=== PATIENT | male | born 1960 | race Caucasian/White ===

== ENCOUNTER → 2018-10-16 | Outpatient (CLI) | payer OTHER | END | disposition home or self-care (01) | LOC: PETCFH 09:28 | PROVIDERS: ATTEND Student in an Organized Health Care Education/Training Program | DX: C61 Malignant neoplasm of prostate (principal) | CPT/HCPCS: 78306; A9503 ==

== ENCOUNTER → 2018-12-11 | Outpatient (CLI) | payer OTHER ==
[~2018-12-11] MED LIST: BIOTIN PO; CALCIUM PO; LISI-167 PO; PANT40TA5 PO; VITA1TAB19 PO
[2018-12-11 09:08] LABS: BASOPHILS # (AUTO) 0.03 x10^3/uL (0-0.1); BASOPHILS % (AUTO) 0 % (0-1); EOSINOPHILS % (AUTO) 4 % (1-7); LYMPHOCYTES # (AUTO) 1.45 x10^3/uL (1-3.4); LYMPHOCYTES % (AUTO) 18 % (22-44); MD NO; MEAN CORPUSCULAR HEMOGLOBIN 31.1 pg (27.5-34.5); MEAN CORPUSCULAR HGB CONC 34.2 g/dL (33.2-36.2); MEAN CORPUSCULAR VOLUME 91.1 fL (81-97); MEAN PLATELET VOLUME 8.8 fL (7.4-10.4); MONOCYTES # (AUTO) 0.64 x10^3/uL (0.2-0.8); MONOCYTES % (AUTO) 8 % (2-9); NEUTROPHILS # (AUTO) 5.76 x10^3/uL (1.8-6.8); NEUTROPHILS % (AUTO) 70 % (42-75); PLATELET COUNT 302 x10^3/uL (130-400); RED BLOOD COUNT 5.22 x10^6/uL (4.38-5.82)
[2018-12-11 09:09] LABS: MICROSCOPIC NOT IND
[2018-12-11 09:13] LABS: INTERNATIONAL NORMALIZED RATIO 1.02 (0.93-1.1); PROTHROMBIN TIME 10.8 Seconds (9.6-11.5)
[2018-12-11 09:16] LABS: ALANINE AMINOTRANSFERASE 29 U/L (12-78); ALBUMIN 3.9 g/dL (3.4-5.0); ANION GAP 6 mmol/L (5-15); CALCIUM 8.9 mg/dL (8.5-10.1); CHLORIDE 108 mmol/L (98-107); CREATININE 1.02 mg/dL (0.7-1.3)
[2018-12-11 09:18] LABS: ALKALINE PHOSPHATASE 73 U/L (45-117); BILIRUBIN,TOTAL 0.7 mg/dL (0.2-1.0); TOTAL PROTEIN 7.2 g/dL (6.4-8.2)
[2018-12-11 10:08] LABS: HEMOGLOBIN A1C 5.1 % (4.2-6.3)
== END | disposition home or self-care (01) ==
LOC: STAR 08:07
PROVIDERS: ATTEND Student in an Organized Health Care Education/Training Program
DX: Z01.818 Encounter for other preprocedural examination (principal); C61 Malignant neoplasm of prostate
CPT/HCPCS: 36415; 80053; 81003; 83036; 85025; 85610; 85730; 87086; 93005

== ENCOUNTER 2018-12-25 05:48 | Inpatient (IN) | payer OTHER ==
[~2018-12-25] VITALS: Ht 170.2 cm; Wt 73.7 kg
[2018-12-25] MEDS ORDERED: THROMBIN 5,000 UNIT VIAL TP ONE (06:51)
[2018-12-25] MEDS ORDERED: BUPIVACAINE/PF 0.25% ONE (06:51)
[2018-12-25] MEDS ORDERED: LACTATED RINGERS 1,000 ML IV SCH (06:51)
[2018-12-25] MEDS ORDERED: ACETAMINOPHEN 500 MG TABLET PO ONE (07:00)
[2018-12-25] MEDS ORDERED: GABAPENTIN 300 MG CAPSULE PO ONE (07:00)
[2018-12-25] MEDS: SODIUM CHLORIDE 0.9% 1,000 ML IV SCH (07:30)
[2018-12-25] MEDS: HEPARIN 5,000 UNITS/ML, 1ML SQ SCH ×3 (07:30→23:43)
[2018-12-25] MEDS: ACETAMINOPHEN 325 MG TABLET PO SCH ×3 (07:30→19:22)
[2018-12-25] MEDS: CEFAZOLIN PMX 1GM/50ML 50 ML IVPB SCH ×2 (07:30→21:38)
[2018-12-25] MEDS ORDERED: ONDANSETRON 2MG/ML, 2ML IV PRN (07:30)
[2018-12-25] MEDS ORDERED: NEOSTIGMINE 1 MG/ML, 10ML ONE (07:35)
[2018-12-25] MEDS ORDERED: PROPOFOL 10 MG/ML, 20ML ONE (07:35)
[2018-12-25] MEDS ORDERED: ROCURONIUM 10 MG/ML,10ML ONE (07:35)
[2018-12-25] MEDS ORDERED: CEFAZOLIN 1,000 MG ONE (07:35)
[2018-12-25] MEDS ORDERED: LIDOCAINE-MPF 2% ,5ML ONE (07:35)
[2018-12-25] MEDS ORDERED: ONDANSETRON 2MG/ML, 2ML ONE ×2 (07:35→14:18)
[2018-12-25] MEDS ORDERED: DEXAMETHASONE 4 MG/ML, 5ML ONE (07:35)
[2018-12-25] MEDS ORDERED: GLYCOPYRROLATE 0.2MG/1ML, 5ML ONE (07:35)
[2018-12-25] MEDS ORDERED: METOCLOPRAMIDE 5 MG/ML, 2ML ONE (07:35)
[2018-12-25] MEDS ORDERED: MIDAZOLAM 1 MG/ML, 2ML ONE (07:36)
[2018-12-25] MEDS ORDERED: FENTANYL PF 250 MCG/5ML ONE (07:37)
[2018-12-25 07:41] LABS: ALBUMIN 3.8 g/dL (3.4-5.0); ANION GAP 8 mmol/L (5-15); CALCIUM 8.4 mg/dL (8.5-10.1); CHLORIDE 111 mmol/L (98-107); CREATININE 0.88 mg/dL (0.7-1.3)
[2018-12-25] MEDS ORDERED: BUPIVACAINE/PF-EPI 0.25% 1:200K INFIL ONE (08:44)
[2018-12-25] MEDS: POLYETHYLENE GLYCOL 17 GM PACKET PO SCH (09:00)
[2018-12-25] MEDS ORDERED: POLYETHYLENE GLYCOL 17 GM PACKET PO SCH (09:00)
[2018-12-25] MEDS ORDERED: FENTANYL PF 100 MCG/2ML ONE (13:16)
[2018-12-25] MEDS ORDERED: OXYcodone 5 MG/5 ML ORAL.SOL UDC ONE (13:16)
[2018-12-25] MEDS ORDERED: HYDROmorphone 2 MG/ML, 1ML ONE ×3 (13:16→19:18)
[2018-12-25] MEDS ORDERED: MIDAZOLAM 1 MG/ML, 2ML IV PRN (13:30)
[2018-12-25] MEDS ORDERED: LABETALOL 5 MG/ML SYRINGE IV PRN (13:30)
[2018-12-25] MEDS ORDERED: ONDANSETRON 2MG/ML, 2ML IVPush PRN (13:30)
[2018-12-25] MEDS ORDERED: OXYcodone 5 MG/5 ML ORAL.SOL UDC PO PRN (13:30)
[2018-12-25] MEDS ORDERED: HYDROmorphone 1 MG/ML, 1ML IV PRN (13:30)
[2018-12-25] MEDS ORDERED: FENTANYL PF 100 MCG/2ML IV PRN (13:30)
[2018-12-25] MEDS ORDERED: MEPERIDINE/PF 25MG/0.5ML IVPush PRN (13:30)
[2018-12-25 13:37] LABS: ANION GAP 9 mmol/L (5-15); CALCIUM 7.6 mg/dL (8.5-10.1); CHLORIDE 110 mmol/L (98-107); CREATININE 1.36 mg/dL (0.7-1.3)
[2018-12-25] MEDS ORDERED: OPIUM/BELLADONNA SUPP.RECT 16.2-60 MG ONE (13:43)
[2018-12-25] MEDS ORDERED: MEPERIDINE/PF 25MG/ML,1ML ONE (13:59)
[2018-12-25] MEDS: HYDROmorphone 1 MG/ML, 1ML IV PRN ×2 (16:06→19:22)
[2018-12-25 18:50] VITALS: BP 124/75
[2018-12-25] MEDS: OXYcodone 5 MG/5 ML ORAL.SOL UDC PO PRN (21:41)
[2018-12-26 00:11] VITALS: BP 121/77
[2018-12-26] MEDS ORDERED: HYDROmorphone 2 MG/ML, 1ML ONE ×3 (01:37→15:06)
[2018-12-26] MEDS: SODIUM CHLORIDE 0.9% 1,000 ML IV SCH ×3 (01:40→21:00)
[2018-12-26] MEDS: ACETAMINOPHEN 325 MG TABLET PO SCH ×4 (01:40→19:26)
[2018-12-26] MEDS: HYDROmorphone 1 MG/ML, 1ML IV PRN ×3 (01:41→15:12)
[2018-12-26 04:09] VITALS: BP 132/78
[2018-12-26] MEDS: OXYcodone 5 MG/5 ML ORAL.SOL UDC PO PRN ×3 (04:51→19:26)
[2018-12-26] MEDS ORDERED: CEFAZOLIN PMX 1GM/50ML 50 ML IV ONE (05:00)
[2018-12-26 05:16] LABS: CHLORIDE 113 mmol/L (98-107)
[2018-12-26 05:25] LABS: ANION GAP 6 mmol/L (5-15); CALCIUM 6.8 mg/dL (8.5-10.1); CREATININE 0.79 mg/dL (0.7-1.3)
[2018-12-26] MEDS: PANTOPROZOLE 40MG TABLET PO SCH (05:55)
[2018-12-26 07:18] VITALS: BP 138/81
[2018-12-26] MEDS: HEPARIN 5,000 UNITS/ML, 1ML SQ SCH ×3 (08:02→23:43)
[2018-12-26] MEDS: POLYETHYLENE GLYCOL 17 GM PACKET PO SCH (08:02)
[2018-12-26 13:05] VITALS: BP 136/86
[2018-12-26 19:23] VITALS: BP 126/80
[2018-12-27 01:07] VITALS: BP 131/81
[2018-12-27] MEDS: OXYcodone 5 MG/5 ML ORAL.SOL UDC PO PRN ×3 (01:23→13:31)
[2018-12-27] MEDS: ACETAMINOPHEN 325 MG TABLET PO SCH ×3 (01:23→13:32)
[2018-12-27 05:26] LABS: ANION GAP 4 mmol/L (5-15); CALCIUM 7.8 mg/dL (8.5-10.1); CHLORIDE 109 mmol/L (98-107); CREATININE 0.84 mg/dL (0.7-1.3)
[2018-12-27] MEDS: PANTOPROZOLE 40MG TABLET PO SCH (06:08)
[2018-12-27] MEDS: SODIUM CHLORIDE 0.9% 1,000 ML IV SCH (07:00)
[2018-12-27] MEDS: HEPARIN 5,000 UNITS/ML, 1ML SQ SCH (07:32)
[2018-12-27 07:59] VITALS: BP 148/92
[2018-12-27] MEDS: POLYETHYLENE GLYCOL 17 GM PACKET PO SCH (08:54)
[2018-12-27 13:51] VITALS: BP 120/78
[2018-12-27] MEDS ORDERED: OXYC5TAB3 PO (14:37)
[2018-12-27] MEDS ORDERED: DOCU-131 PO (14:37)
== END 2018-12-27 14:51 | disposition home or self-care (01) | DRG 708 ==
LOC: ORIP 05:48 → EDSTATUS 07:30 → 4NOR 14:46 → DCLOUNGE 12-27 14:30
PROVIDERS: ADMIT Student in an Organized Health Care Education/Training Program; ATTEND Student in an Organized Health Care Education/Training Program
PROC: 0VT34ZZ Resection of Bilateral Seminal Vesicles, Percutaneous Endoscopic Approach (ICD-10-PCS; 2018-12-25)
PROC: 07BC4ZZ Excision of Pelvis Lymphatic, Percutaneous Endoscopic Approach (ICD-10-PCS; 2018-12-25)
PROC: 0TQC4ZZ Repair Bladder Neck, Percutaneous Endoscopic Approach (ICD-10-PCS; 2018-12-25)
PROC: 0TQD4ZZ Repair Urethra, Percutaneous Endoscopic Approach (ICD-10-PCS; 2018-12-25)
PROC: 0DN84ZZ Release Small Intestine, Percutaneous Endoscopic Approach (ICD-10-PCS; 2018-12-25)
PROC: 8E0W4CZ Robotic Assisted Procedure of Trunk Region, Percutaneous Endoscopic Approach (ICD-10-PCS; 2018-12-25)
PROC: 0VTQ4ZZ Resection of Bilateral Vas Deferens, Percutaneous Endoscopic Approach (ICD-10-PCS; 2018-12-25)
PROC: 0VT04ZZ Resection of Prostate, Percutaneous Endoscopic Approach (ICD-10-PCS; principal; 2018-12-25 07:30)
DX: C61 Malignant neoplasm of prostate (principal); I10 Essential (primary) hypertension; K21.9 Gastro-esophageal reflux disease without esophagitis
CPT/HCPCS: 36415; J3490; 80048; 82040; 82570; 85014; 86850; 86900; 88305; 88309; C1729; G0378; J0690; J1100; J1170; J1644; J2175; J2250; J2405; J2704; J2710; J3010; C1760; J2765; J7030

== ENCOUNTER 2019-10-16 12:27 | Day surgery (SDC) | payer OTHER ==
[~2019-10-16] VITALS: Ht 170.2 cm; Wt 73.0 kg
[~2019-10-16 12:27] MED LIST changes: +DOCU-131 PO; +OXYC5TAB3 PO
[2019-10-16] MEDS ORDERED: LACTATED RINGERS 1,000 ML IV SCH (12:59)
[2019-10-16 13:20] VITALS: BP 120/78
[2019-10-16] MEDS ORDERED: PROPOFOL 10 MG/ML, 20ML ONE (14:17)
== END 2019-10-16 16:05 | disposition home or self-care (01) ==
LOC: OUT 12:27
PROVIDERS: ATTEND Internal Medicine
DX: K22.711 Barrett's esophagus with high grade dysplasia (principal); K21.9 Gastro-esophageal reflux disease without esophagitis; K20.8 Other esophagitis; K44.9 Diaphragmatic hernia without obstruction or gangrene; R13.19 Other dysphagia; I10 Essential (primary) hypertension; F12.90 Cannabis use, unspecified, uncomplicated; Z85.46 Personal history of malignant neoplasm of prostate; Z80.0 Family history of malignant neoplasm of digestive organs
CPT/HCPCS: 43239; 88305; 93005; J2704; J7120